=== PATIENT | male | born 1975 | race Caucasian/White ===

== ENCOUNTER 2022-03-30 01:05 | Day surgery (SDC) | payer OTHER, SELFPAY ==
--- NOTE | 2022-03-07 12:21 | SUR.PREOP ---
03/07/22 1221 called and left message on Jayjay's voicemail regarding him contacting [facility] to set up his prep for his procedure. Asked for him to return call to me.
--- NOTE | 2022-03-08 09:12 | SUR.PREOP ---
0911 called patient and left voicemail to return call. 0912 called contact number and was able to speak with the pt. Discussed with the patient the need to call [facility] to get his prep arranged for his upcoming procedure. Patient stated he would call them today. No other questions voiced.
[2022-03-14 12:34] VITALS: BMI 48.0
--- NOTE | 2022-03-29 13:05 | PM.HPGS ---
History of Present Illness History of Present Illness Consent: Risks, benefits, and alternatives have been discussed and questions answered. Patient agrees to proceed with procedure. Chief complaint: melena Narrative: Jayjay Baker is a 46 year old male Referred for screening colonoscopy. He also has seen some blood in his stool Every so often he will see blood which is usually dark red that comes out with this stool. He does not see bright red blood when wiping himself after a bowel movement. He has had no change in bowel habits and has no abdominal or rectal pain Review of Systems Review of Systems: All systems reviewed & are unremarkable except as noted in HPI and below PMFSH Past Medical History Medical History Diabetes type 2, controlled Hypertension DESIREE (obstructive sleep apnea) CPAP Social History Social History Smoking status: Never smoker Substance use type: does not use Living arrangements: alone Spiritual care concerns: No Meds Home Medications and Allergies Home Medications Medication Instructions Recorded Confirmed Type dulaglutide 0.75 mg/0.5 mL 1 ea subcut WEEKLY 03/14/22 03/14/22 History subcutaneous pen injector (Trulicity) empagliflozin 10 mg tablet 1 tablet PO DAILY 03/14/22 03/14/22 History (Jardiance) ergocalciferol (vitamin D2) 1,250 1 cap PO WEEKLY 03/14/22 03/14/22 History mcg (50,000 unit) capsule lisinopril 10 mg tablet 1 tablet PO DAILY 03/14/22 03/14/22 History rosuvastatin 10 mg tablet 1 tablet PO DAILY 03/14/22 03/14/22 History fluticasone propionate 50 2 ea intranasal DAILY 03/29/22 03/29/22 History mcg/actuation nasal spray,suspension loratadine 10 mg tablet 10 tablet DAILY 03/29/22 03/29/22 History Allergies Allergy/AdvReac Type Severity Reaction Status Date / Time No Known Allergies Allergy Verified 03/30/22 08:27 Exam Resp: Auscultation: clear to auscultation bilaterally Cardio: Rate: regular rate Rhythm: regular rhythm GI: GI Palp: Yes Soft to palpation and No Tenderness to palpation present (GI) Assessment and Plan Assessment and plan (1) Colon cancer screening: Code(s): Z12.11 - Encounter for screening for malignant neoplasm of colon Status: Acute Assessment and Plan: Colonoscopy with possible biopsy or polypectomy or cautery or injection of substances.
--- NOTE | 2022-03-29 15:29 | WPDANESEPPF ---
Anes - Initial Pre Proc Eval Procedure: Operation Date: 03/30/22 09:45 Proposed Procedures p Colonoscopy - Dennis Musa MD Date/Time: 03/29/22 15:29 Surgeon: Dennis Musa MD Pre Op Diagnosis: melena Patient Data Age: 46 Gender: M Height: 1.78 m Weight: 152 kg Allergies Allergy/AdvReac Type Severity Reaction Status Date / Time No Known Allergies Allergy Verified 03/30/22 08:27 Home Medications Medication Instructions Recorded Confirmed Type dulaglutide 0.75 mg/0.5 mL 1 ea subcut WEEKLY 03/14/22 03/14/22 History subcutaneous pen injector (Trulicity) empagliflozin 10 mg tablet 1 tablet PO DAILY 03/14/22 03/14/22 History (Jardiance) ergocalciferol (vitamin D2) 1,250 1 cap PO WEEKLY 03/14/22 03/14/22 History mcg (50,000 unit) capsule lisinopril 10 mg tablet 1 tablet PO DAILY 03/14/22 03/14/22 History rosuvastatin 10 mg tablet 1 tablet PO DAILY 03/14/22 03/14/22 History fluticasone propionate 50 2 ea intranasal DAILY 03/29/22 03/29/22 History mcg/actuation nasal spray,suspension loratadine 10 mg tablet 10 tablet DAILY 03/29/22 03/29/22 History Patient hx anesthesia problems: none Family hx anesthesia problems: none Results Review: All pre-operative results and documents have been reviewed as part of the pre-operative evaluation. [facility] Past Medical History Medical History (Updated 03/29/22 @ 15:30 by Jayjay Figueredo DO) Diabetes type 2, controlled Hypertension DESIREE (obstructive sleep apnea) CPAP Social History Social History Smoking status: Never smoker Substance use type: does not use Living arrangements: alone Spiritual care concerns: No Anes - Eval Final PreProcedure Day of Procedure 03/29/22 15:29 Patient weight: morbidly obese Heart: regular rate and rhythm Lungs: clear to auscultation Airway: Mallampati scale class III Neurological: alert and oriented Last oral intake: >/= 8 hours ASA classification: III Emergent: no Anesthetic plan: proceed Anesthesia type and monitoring: general GIVS and standard monitoring Results Review: All pre-operative results and documents have been reviewed as part of the pre-operative evaluation. Informed Consent: The patient's anesthetic plan and its attendant risks and benefits were discussed with the patient/family/POA. Questions were solicited and answers provided to the satisfaction of the patient/family/POA.
[2022-03-30 08:28] VITALS: BP 129/76; PULSE 87; TEMP 36.4; O2SAT 98
[2022-03-30] MEDS: LACTATED RINGERS 1,000 ML 150 ML IV CONT (08:46)
[2022-03-30 08:50] LABS: Glucose Point of Care 99 mg/dl (65-105)
[2022-03-30 09:16] VITALS: BP 92/55; PULSE 85; RESP 18; O2SAT 94
[2022-03-30 09:26] VITALS: BP 104/52; PULSE 74; RESP 18; O2SAT 97
[2022-03-30 09:27] LABS: Glucose Point of Care 90 mg/dl (65-105)
[2022-03-30 09:36] VITALS: BP 101/61; PULSE 67; RESP 18; O2SAT 94
== END 2022-03-30 09:47 | disposition home or self-care (01) ==
PROVIDERS: PCP Internal Medicine; Visit Provider Internal Medicine Gastroenterology
PROC: 0DJD8ZZ Inspection of Lower Intestinal Tract, Via Natural or Artificial Opening Endoscopic (ICD-10-PCS; CPT 45378; principal; 2022-03-30 09:45)
DX: Z12.11 Encounter for screening for malignant neoplasm of colon (principal); K64.8 Other hemorrhoids; K92.1 Melena; E11.9 Type 2 diabetes mellitus without complications; I10 Essential (primary) hypertension; G47.33 Obstructive sleep apnea (adult) (pediatric); Z79.899 Other long term (current) drug therapy; Z79.84 Long term (current) use of oral hypoglycemic drugs; E66.01 Morbid (severe) obesity due to excess calories; Z68.42 Body mass index [BMI] 45.0-49.9, adult
CPT/HCPCS: 45378; 82948; J2704; J7120